=== PATIENT | female | born 2000 | race Caucasian/White ===

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

== ENCOUNTER 2020-07-24 11:07 | Emergency (ER) | payer MEDICAID, OTHER, SELFPAY ==
[~2020-07-24] VITALS: Ht 157.5 cm; Wt 72.8 kg
[~2020-07-24 11:07] MED LIST changes: +CYCL-707 PO; +HYDR-3715 PO; +HYDR1CRE TOP; +IBUP-1022 PO; +MIRT15TA3 PO; +NAPR-837 PO; -NAPR500T PO; +NICO21PAT TD
[2020-07-24] MEDS ORDERED: ONDANSETRON 4MG/2ML VIAL IV ONE (12:00)
[2020-07-24 12:45] LABS: BASO % 0.4 % (0.0-1.0); EOS # 0.1 10^3/uL (0.0-0.5); HEMATOCRIT 39.4 % (36.0-47.0); HEMOGLOBIN 12.9 g/dl (12.0-15.5); LYMPH # 1.7 10^3/uL (1.5-5.0); LYMPH % 14.7 % (24.0-44.0); MEAN CORPUSCULAR HEMOGLOBIN 29.5 pg (27.0-33.0); MEAN CORPUSCULAR HGB CONC 32.7 g/dl (32.0-36.5); MEAN CORPUSCULAR VOLUME 90.2 fl (80.0-96.0); MONO # 0.8 10^3/uL (0.0-0.8); MONO % 7.1 % (0.0-5.0); NEUTROPHILS # 8.6 10^3/uL (1.5-8.5); NEUTROPHILS % 76.5 % (36.0-66.0); PLATELET COUNT, AUTOMATED 368 10^3/uL (150-450); RED BLOOD COUNT 4.37 10^6/uL (4.00-5.40); WHITE BLOOD COUNT 11.3 10^3/uL (4.0-10.0)
[2020-07-24] MEDS ORDERED: KETOROLAC 30 MG/ML 1ML VIAL IV ONE ×2 (12:45→16:00)
[2020-07-24 13:09] LABS: ALT/SGPT 28 U/L (12-78)
[2020-07-24 13:10] LABS: ALBUMIN 3.6 GM/DL (3.2-5.2); BILIRUBIN,DIRECT < 0.1 MG/DL (0.0-0.2); BILIRUBIN,TOTAL 0.4 MG/DL (0.2-1.0); LIPASE 106 U/L (73-393)
--- NOTE | 2020-07-24 13:38 | REP ---
INDICATION: flank pain COMPARISON: 09/11/2017 TECHNIQUE: Axial noncontrast images from the lung bases to the pubic symphysis with coronal and sagittal reformations. This CT examination was performed using the following dose reduction techniques: Automated exposure control, adjustment of mA and/or kv according to the patient's size, and use of iterative reconstruction technique. FINDINGS: There is mild edematous enlargement to the right kidney with mild hydroureteronephrosis, but no intrarenal or obstructing ureteral calculi identified. Left kidney/ureter and bladder appear normal. Correlation with urinalysis is recommended to exclude recently passed stone and or pyelonephritis. Liver and spleen are upper limits of normal in size. Pancreas, gallbladder, and bilateral adrenal glands are normal. The enteric system is without obstruction or acute inflammatory process. Pelvis demonstrates normal bladder and age-appropriate uterus/adnexa with IUD in satisfactory position. No ascites. No free air. No obvious adenopathy. Abdominal aorta without aneurysm. Musculoskeletal structures are intact. Lung bases are clear. IMPRESSION: Mild edematous enlargement to the right kidney with hydronephrosis but no obvious intrarenal or obstructing ureteral calculi. Correlation with urinalysis is recommended to exclude pyelonephritis or possible recently passed stone. <Electronically signed by Bayron Kaba > 07/24/20 [id number]
[2020-07-24] MEDS ORDERED: LEVO750T14 PO (13:52)
[2020-07-24] MEDS ORDERED: ONDA4TAB6 PO (13:54)
[2020-07-24] MEDS ORDERED: cefTRIAXone SOD 1 GM in D5W MINI-BAG PLUS 50 ML IV ONE (14:00)
[2020-07-24 16:00] VITALS: BP 103/52
== END 2020-07-24 16:09 | disposition home or self-care (01) ==
LOC: M ED 11:07
DX: N12 Tubulo-interstitial nephritis, not specified as acute or chronic (principal); N13.39 Other hydronephrosis; R11.0 Nausea; Z87.42 Personal history of other diseases of the female genital tract; Z97.5 Presence of (intrauterine) contraceptive device; F17.200 Nicotine dependence, unspecified, uncomplicated; Z79.899 Other long term (current) drug therapy
CPT/HCPCS: 74176; 80047; 80076; 81001; 83605; 83690; 84702; 85025; 87088; 87186; 96365; 96375; 99285; J0696; J1885; J2405